=== PATIENT | male | born 1950 | race Caucasian/White ===

== ENCOUNTER → 2019-11-29 | Outpatient (CLI) | payer MEDICARE ==
[~2019-11-29] MED LIST: ATOR10TA PO; LORA-446 PO; METO25TA35 PO
[2019-11-29 11:57] LABS: BASOPHILS # (AUTO) 0.03 x10^3/uL (0-0.1); BASOPHILS % (AUTO) 0 % (0-1); EOSINOPHILS # (AUTO) 0.05 x10^3/uL (0-0.4); EOSINOPHILS % (AUTO) 1 % (1-7); LYMPHOCYTES # (AUTO) 1.17 x10^3/uL (1-3.4); LYMPHOCYTES % (AUTO) 14 % (22-44); MD NO; MEAN CORPUSCULAR HEMOGLOBIN 33.3 pg (27.5-34.5); MEAN CORPUSCULAR HGB CONC 33.8 g/dL (33.2-36.2); MEAN CORPUSCULAR VOLUME 98.4 fL (81-97); MEAN PLATELET VOLUME 8.4 fL (7.4-10.4); MONOCYTES # (AUTO) 0.74 x10^3/uL (0.2-0.8); MONOCYTES % (AUTO) 9 % (2-9); NEUTROPHILS # (AUTO) 6.28 x10^3/uL (1.8-6.8); NEUTROPHILS % (AUTO) 76 % (42-75); PLATELET COUNT 213 x10^3/uL (130-400); RED BLOOD COUNT 4.79 x10^6/uL (4.38-5.82); RED CELL DISTRIBUTION WIDTH 13.6 % (9.4-14.8)
[2019-11-29 12:07] LABS: ALBUMIN 4.3 g/dL (3.4-5.0); ANION GAP 11 mmol/L (5-15); CALCIUM 9.3 mg/dL (8.5-10.1); CHLORIDE 107 mmol/L (98-107); INTERNATIONAL NORMALIZED RATIO 0.92 (0.93-1.1); PROTHROMBIN TIME 9.7 Seconds (9.6-11.5)
[2019-11-29 12:11] LABS: ALANINE AMINOTRANSFERASE 38 U/L (12-78); ALKALINE PHOSPHATASE 59 U/L (45-117); BILIRUBIN,TOTAL 0.4 mg/dL (0.2-1.0); CREATININE 0.92 mg/dL (0.7-1.3); TOTAL PROTEIN 7.7 g/dL (6.4-8.2)
[2019-11-29 12:46] LABS: HCT (SEDRATE) 47.2 % (39.2-51.8)
== END | disposition home or self-care (01) ==
LOC: STAR 10:53
PROVIDERS: ATTEND Orthopaedic Surgery Orthopaedic Surgery of the Spine
DX: Z01.818 Encounter for other preprocedural examination (principal); M50.20 Other cervical disc displacement, unspecified cervical region; M48.02 Spinal stenosis, cervical region; G95.9 Disease of spinal cord, unspecified; R68.89 Other general symptoms and signs
CPT/HCPCS: 36415; 71046; 80053; 83036; 85025; 85610; 85651; 85730; 93005

== ENCOUNTER 2019-12-03 08:35 | Inpatient (IN) | payer MEDICARE ==
[~2019-12-03] VITALS: Ht 182.9 cm; Wt 77.0 kg
[2019-12-03] MEDS ORDERED: LACTATED RINGERS 1,000 ML IV SCH (08:52)
[2019-12-03] MEDS ORDERED: CHLORHEXIDINE 15 ML UDC ONE (08:54)
[2019-12-03] MEDS ORDERED: LIDOCAINE-MPF 1%, 2ML ONE (08:54)
[2019-12-03] MEDS ORDERED: LIDOCAINE-MPF 1%, 2ML INFIL ONE (09:00)
[2019-12-03] MEDS ORDERED: FENTANYL PF 100 MCG/2ML ONE ×3 (09:18→14:07)
[2019-12-03] MEDS ORDERED: MIDAZOLAM 1 MG/ML, 2ML ONE (09:18)
[2019-12-03] MEDS ORDERED: ROCURONIUM 10MG/ML,5ML ONE (09:19)
[2019-12-03] MEDS ORDERED: NEOSTIGMINE 1 MG/ML, 10ML ONE (09:19)
[2019-12-03] MEDS ORDERED: CEFAZOLIN 1,000 MG ONE (09:19)
[2019-12-03] MEDS ORDERED: PROPOFOL 10 MG/ML, 20ML ONE (09:19)
[2019-12-03] MEDS ORDERED: SUCCINYLCHOLINE 20 MG/ML, 10ML ONE (09:19)
[2019-12-03] MEDS ORDERED: GLYCOPYRROLATE 0.2MG/1ML, 5ML ONE (09:19)
[2019-12-03] MEDS ORDERED: DEXAMETHASONE 4 MG/ML, 1ML ONE (09:19)
[2019-12-03] MEDS ORDERED: ONDANSETRON 2MG/ML, 2ML ONE (09:19)
[2019-12-03] MEDS ORDERED: VANCOMYCIN PMX 1GM/200ML 200 ML IV STA (09:20)
[2019-12-03] MEDS ORDERED: CHLORHEXIDINE 15 ML UDC MM STA (09:21)
[2019-12-03] MEDS ORDERED: VANCOMYCIN 1,000 MG ONE (10:36)
[2019-12-03] MEDS ORDERED: BUPIVACAINE/PF-EPI 0.5% 1:200K ONE (10:36)
[2019-12-03] MEDS ORDERED: BACITRACIN 50,000 UNIT ONE (10:36)
[2019-12-03] MEDS ORDERED: PROPOFOL 50 ML ONE ×3 (10:59→12:28)
[2019-12-03] MEDS ORDERED: SODIUM CHLORIDE 0.9% 1,000 ML IV PRN (11:02)
[2019-12-03] MEDS ORDERED: PHENYLEPHRINE 10 MG/ML ONE (11:03)
[2019-12-03] MEDS ORDERED: VASOPRESSIN 20 UNIT/ML, 1ML ONE (11:03)
[2019-12-03] MEDS ORDERED: ONDANSETRON 2MG/ML, 2ML IV PRN (11:30)
[2019-12-03] MEDS ORDERED: ACETAMINOPHEN 650 MG SUPP PR PRN (11:30)
[2019-12-03] MEDS ORDERED: DEXAMETHASONE 4 MG/ML, 5ML IVPush PRN (11:30)
[2019-12-03] MEDS ORDERED: BISACODYL 10 MG SUPP PR PRN (11:30)
[2019-12-03] MEDS ORDERED: KETOROLAC 30 MG/1 ML IVPush PRN ×2 (11:30→12:00)
[2019-12-03] MEDS ORDERED: ACETAMINOPHEN 500 MG TABLET PO PRN (11:30)
[2019-12-03] MEDS ORDERED: DIPHENHYDRAMINE 50 MG/ML, 1ML IM PRN (11:30)
[2019-12-03] MEDS ORDERED: OXYcodone IR 5MG TABLET PO PRN (11:30)
[2019-12-03] MEDS ORDERED: LABETALOL 5MG/ML, 20ML IVPush PRN (11:30)
[2019-12-03] MEDS ORDERED: PROMETHAZINE 25 MG/ML, 1ML IM PRN (11:30)
[2019-12-03] MEDS ORDERED: MAGNESIUM HYDROXIDE 8%, 30ML UDC PO PRN (11:30)
[2019-12-03] MEDS ORDERED: DIAZEPAM 5 MG TABLET PO PRN (11:30)
[2019-12-03] MEDS ORDERED: SENNA/DOCUSATE TABLET PO PRN (11:30)
[2019-12-03] MEDS ORDERED: morphine SULFATE 10 MG/ML, 1ML IVPush PRN (11:30)
[2019-12-03] MEDS ORDERED: MEPERIDINE/PF 25MG/0.5ML IVPush PRN (12:00)
[2019-12-03] MEDS ORDERED: OXYcodone 5 MG/5 ML ORAL.SOL UDC PO PRN (12:00)
[2019-12-03] MEDS ORDERED: PROMETHAZINE 25 MG/ML, 1ML IVPush PRN (12:00)
[2019-12-03] MEDS ORDERED: HYDROcodone/APAP 7.5-325MG/15ML UDC PO PRN (12:00)
[2019-12-03] MEDS ORDERED: TRANEXAMIC ACID 100 MG/ML, 10ML ONE (12:28)
[2019-12-03] MEDS ORDERED: methylPREDNISolone *ACETATE* 40 MG/ML ONE (12:28)
[2019-12-03] MEDS ORDERED: LORazepam 2 MG/ML, 1ML ONE (14:08)
[2019-12-03] MEDS: FENTANYL PF 100 MCG/2ML IV PRN ×2 (14:10→14:15)
[2019-12-03] MEDS: LORazepam 2 MG/ML, 1ML IVPush PRN ×2 (14:10→14:21)
[2019-12-03] MEDS ORDERED: OXYcodone 5 MG/5 ML ORAL.SOL UDC ONE (14:17)
[2019-12-03] MEDS ORDERED: HYDROmorphone 1 MG/ML, 1ML INJ ONE (14:17)
[2019-12-03] MEDS: HYDROmorphone 1 MG/ML, 1ML INJ IVPush PRN ×2 (14:20→14:30)
[2019-12-03] MEDS: METHOCARBAMOL 1,000 MG in DEXTROSE 5% 100 ML IV SCH ×2 (14:45→23:14)
[2019-12-03] MEDS: D5%-0.9% NACL+KCL 20MEQ 1,000 ML IV SCH (17:05)
[2019-12-03 18:27] VITALS: BP 122/63
[2019-12-03] MEDS: OXYcodone IR 5MG TABLET PO PRN ×2 (18:31→21:57)
[2019-12-03] MEDS: CEFAZOLIN PMX 1GM/50ML 50 ML IVPB SCH (18:44)
[2019-12-03] MEDS ORDERED: ZOLPIDEM 5MG TABLET PO PRN (21:00)
[2019-12-03] MEDS ORDERED: ATORVASTATIN 10 MG TABLET PO SCH (21:00)
[2019-12-03] MEDS: LORazepam 1MG TABLET PO PRN (21:06)
[2019-12-04 00:16] VITALS: BP 139/82
[2019-12-04] MEDS: OXYcodone IR 5MG TABLET PO PRN ×3 (02:28→10:35)
[2019-12-04] MEDS: CEFAZOLIN PMX 1GM/50ML 50 ML IVPB SCH (03:14)
[2019-12-04 04:14] VITALS: BP 130/70
[2019-12-04 05:33] LABS: BASOPHILS % (AUTO) 0 % (0-1); EOSINOPHILS # (AUTO) 0.01 x10^3/uL (0-0.4); EOSINOPHILS % (AUTO) 0 % (1-7); LYMPHOCYTES # (AUTO) 0.78 x10^3/uL (1-3.4); LYMPHOCYTES % (AUTO) 6 % (22-44); MD NO; MEAN CORPUSCULAR HEMOGLOBIN 33.1 pg (27.5-34.5); MEAN CORPUSCULAR HGB CONC 33.8 g/dL (33.2-36.2); MEAN CORPUSCULAR VOLUME 97.9 fL (81-97); MONOCYTES # (AUTO) 1.02 x10^3/uL (0.2-0.8); MONOCYTES % (AUTO) 8 % (2-9); NEUTROPHILS # (AUTO) 10.51 x10^3/uL (1.8-6.8); NEUTROPHILS % (AUTO) 85 % (42-75); PLATELET COUNT 150 x10^3/uL (130-400); RED BLOOD COUNT 4.25 x10^6/uL (4.38-5.82); RED CELL DISTRIBUTION WIDTH 13.4 % (9.4-14.8)
[2019-12-04] MEDS: D5%-0.9% NACL+KCL 20MEQ 1,000 ML IV SCH (05:44)
[2019-12-04] MEDS: METHOCARBAMOL 1,000 MG in DEXTROSE 5% 100 ML IV SCH (06:33)
[2019-12-04 08:00] VITALS: BP 143/72
[2019-12-04] MEDS: LORazepam 1MG TABLET PO PRN (08:00)
[2019-12-04] MEDS ORDERED: METOPROLOL TARTRATE 25 MG TAB PO SCH (09:00)
[2019-12-04] MEDS ORDERED: METH750T87 PO (10:59)
[2019-12-04] MEDS ORDERED: OXYC5CAP2 PO (10:59)
[2019-12-04 12:37] VITALS: BP 124/71
[2019-12-05] MEDS ORDERED: METHOCARBAMOL 750 MG TABLET PO SCH (15:00)
== END 2019-12-04 12:15 | disposition home or self-care (01) | DRG 472 ==
LOC: OUT 08:35 → ORIP 11:45 → 4NE 15:43
PROVIDERS: ADMIT Orthopaedic Surgery Orthopaedic Surgery of the Spine; ATTEND Orthopaedic Surgery Orthopaedic Surgery of the Spine
PROC: 0RG20A0 Fusion of 2 or more Cervical Vertebral Joints with Interbody Fusion Device, Anterior Approach, Anterior Column, Open Approach (ICD-10-PCS; 2019-12-03)
PROC: 00NW0ZZ Release Cervical Spinal Cord, Open Approach (ICD-10-PCS; 2019-12-03)
PROC: 0RT30ZZ Resection of Cervical Vertebral Disc, Open Approach (ICD-10-PCS; 2019-12-03)
PROC: 0RP104Z Removal of Internal Fixation Device from Cervical Vertebral Joint, Open Approach (ICD-10-PCS; 2019-12-03)
PROC: 4A11X4G Monitoring of Peripheral Nervous Electrical Activity, Intraoperative, External Approach (ICD-10-PCS; principal; 2019-12-03 10:30)
DX: M50.11 Cervical disc disorder with radiculopathy, high cervical region (principal); M50.01 Cervical disc disorder with myelopathy, high cervical region; M48.02 Spinal stenosis, cervical region; R13.10 Dysphagia, unspecified; Z91.048 Other nonmedicinal substance allergy status; F41.9 Anxiety disorder, unspecified; I10 Essential (primary) hypertension
CPT/HCPCS: 36415; 72040; 85025; 87635; 95938; 95941; C1713; C1776; G0378; J0690; J1100; J1170; J2250; J2405; J2704; J2710; J3010; J3370; C1760; C1762; C1763; C1889; J0330; J1030; J2060; J2370; J2800; J3480; J7120